=== PATIENT | male | born 1945 | race Caucasian/White ===

== ENCOUNTER 2022-06-30 09:57 | Outpatient (REF) | payer MEDICARE, SELFPAY ==
--- NOTE | ~2022-06-30 | XR_ITS ---
EXAMINATION: XR CHEST CLINICAL INFORMATION: Dyspnea. COMPARISON: None TECHNIQUE: 2 views of the chest were obtained. FINDINGS: There is mild elevation of the right hemidiaphragm. Coarse pleural calcifications are seen bilaterally. The heart and mediastinal structures are unremarkable. XR/XR chest 2V IMPRESSION: Coarse pleural calcifications bilaterally without overt acute underlying osseous abnormality suggestive of prior asbestos exposure. Correlate with patient history.
[2022-06-30 11:46] LABS: Influenza A PCR NEGATIVE (Negative); Influenza B PCR NEGATIVE (Negative); Resp Syncy Virus RNA Qual PCR NEGATIVE (Negative); SARS COV2 PCR INHOUSE NEGATIVE (Negative)
== END 2022-06-30 09:58 | disposition home or self-care (01) ==
LOC: HO.XRAY 09:57
PROVIDERS: PCP Internal Medicine; Visit Provider Internal Medicine Pulmonary Disease
DX: Z20.822 Contact with and (suspected) exposure to COVID-19 (principal); R06.00 Dyspnea, unspecified; J61 Pneumoconiosis due to asbestos and other mineral fibers; J84.9 Interstitial pulmonary disease, unspecified; J40 Bronchitis, not specified as acute or chronic
CPT/HCPCS: 0241U; 71046; 99202

== ENCOUNTER 2022-09-27 06:21 | Outpatient (REF) | payer MEDICARE, SELFPAY ==
[2022-09-27 11:54] LABS: Alanine Aminotransferase 11 U/L (0-40); Albumin Level 3.9 g/dL (3.5-5.0); Alkaline Phosphatase 78 U/L (39-117); Anion Gap 9 (12-20); Aspartate Amino Transferase 16 U/L (5-37); Bilirubin Total 1.6 mg/dL (0.0-1.0); Blood Urea Nitrogen 32 mg/dL (9-16); Calcium 9.2 mg/dL (8.4-10.2); Carbon Dioxide 30 mmol/L (22-29); Chloride 107 mmol/L (96-108); Estimated Glomerular Filt Rate 45; Glucose Random 120 mg/dL (60-115); Potassium 4.3 mmol/L (3.3-5.1); Sodium 142 mmol/L (135-145); Total Protein 5.8 g/dL (6.5-8.0)
== END 2022-09-27 06:22 | disposition home or self-care (01) ==
LOC: HO.HMGCLDS 06:21
PROVIDERS: PCP Internal Medicine; Visit Provider Internal Medicine
DX: R60.0 Localized edema (principal)
CPT/HCPCS: 36415; 80053

== ENCOUNTER 2023-11-08 19:33 | Observation (INO) | payer MEDICARE, SELFPAY ==
[2023-11-08] VITALS (8 sets, daily range): BP systolic 85–124; BP diastolic 50–83; PULSE 60–85; RESP 16–18; TEMP 36.4–36.8; O2SAT 97–98; BMI 27.6
--- NOTE | 2023-11-08 | ECG_ITS ---
Test Reason : SYNCOPE Blood Pressure : / mmHG Vent. Rate : 063 BPM Atrial Rate : 063 BPM P-R Int : 170 ms QRS Dur : 086 ms QT Int : 418 ms P-R-T Axes : 040 010 019 degrees QTc Int : 427 ms Normal sinus rhythm Normal ECG No previous ECGs available Referred By: Generic ED Physician Electronically Signed By:KODAK MARTINEZ MD
--- NOTE | ~2023-11-08 | CT_ITS ---
EXAMINATION: CT ANGIOGRAM HEAD CT ANGIOGRAM NECK CLINICAL INFORMATION: Reason for Exam Syncope COMPARISON: None. TECHNIQUE: Initial noncontrast boiler technician imaging of the head and neck was performed. Noncontrast head CT was also performed. Test bolus sequences followed by intravenous administration 70 mL of Omnipaque 350. Helical imaging was performed in the axial plane from the aortic arch to the skull vertex. Delayed postcontrast imaging of the head was also performed. The data was processed at the ophthalmic technologist workstation for generation of MIP sequences. Angled MIPs and volume rendered reformatted images were also generated at an offline 3D workstation. Stenoses are assessed in accordance with NASCET criteria unless otherwise indicated. DLP: 2472.98 mGy-cm This CT examination was performed using dose optimization techniques as appropriate, variously including the following: *Automated exposure control. *Adjustment of mA and/or kV according to patient size (this includes techniques or standardized protocols for targeted exams where dose is matched to indication/reason for exam; i.e. extremities or head). *Use of iterative reconstruction technique. FINDINGS: CT Head: There is no evidence of acute intracranial hemorrhage or edematous territorial infarction. A few foci of hypoattenuation in the periventricular and deep white matter are consistent with mild microangiopathy. Vee-white matter differentiation is preserved. The ventricles are normal in size and configuration. No evidence for obstructive hydrocephalus. No abnormal mass effect or midline shift. No extra-axial fluid collections. There is an arachnoid cyst in the anterior right middle cranial fossa measuring up to 3.7 cm with mild mass effect on the anterior right temporal lobe. No pathologic intra-axial enhancement or regional oligemia. No acute soft tissue or osseous abnormalities. Mild maxillary sinus mucosal thickening. CT Neck: The thyroid gland and remaining cervical soft tissues are within normal limits. Multilevel cervical spondylosis. CT Upper Chest: Bilateral calcified pleural plaques. Neck CTA: Aortic Arch: Normal contour and caliber. Classic 3 vessel branching pattern of the aortic arch. Great Vessel Origins: No significant stenosis of the branch origins. Right Common Carotid Artery: No focal stenosis or occlusion. Cervical Right Internal Carotid Artery: Mild calcific atherosclerotic disease of the carotid bulb and proximal internal carotid artery without flow-limiting stenosis. Left Common Carotid Artery: No focal stenosis or occlusion. Cervical Left Internal Carotid Artery: Mild calcific atherosclerotic disease of the carotid bulb and proximal internal carotid artery without flow-limiting stenosis. Cervical Right Vertebral Artery: High-grade stenosis of the vessel origin. No other focal stenosis or occlusion. Cervical Left Vertebral Artery: There is moderate extrinsic compression of the V2 segment related to facet and uncovertebral hypertrophy at C4-C5. No other focal stenosis or occlusion. Brain CTA: Intracranial Internal Carotid Arteries: Calcific atherosclerotic disease of the intracranial internal carotid arteries without occlusion or flow-limiting stenosis. Right Anterior Cerebral Artery: Normal A1 segment. Normal opacification of the distal DALLIN segments. Left Anterior Cerebral Artery: Normal A1 segment. Normal opacification of the distal DALLIN segments. Anterior Communicating Artery: Normal. Right Middle Cerebral Artery: Normal M1 segment of the MCA without focal stenosis or occlusion. Normal arborization of the distal segments. Left Middle Cerebral Artery: Normal M1 segment of the MCA without focal stenosis or occlusion. Normal arborization of the distal segments. Right Vertebral Artery: Normal V4 segment. Left Vertebral Artery: Normal V4 segment. Basilar Artery: Normal without focal stenosis or occlusion. Normal appearance of the proximal superior cerebellar arteries. Right Posterior Cerebral Artery: The P1 segment is diminutive. origin of the PANTOGRAPHER with robust opacification of the posterior communicating artery. Normal opacification of the distal PANTOGRAPHER segments. Left Posterior Cerebral Artery: The P1 segment is diminutive. origin of the PANTOGRAPHER with robust opacification of the posterior communicating artery. Normal opacification of the distal PANTOGRAPHER segments. Normal opacification of the superior sagittal, straight, transverse, and sigmoid sinuses. CT/CT angio head neck IMPRESSION: 1. No acute intracranial abnormality including hemorrhage, mass effect, hydrocephalus, or acute territorial edematous infarction. 2. Arachnoid cyst along the anterior aspect of the right middle cranial fossa with mild mass effect on the anterior right temporal lobe. 3. 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 No other high-grade arterial narrowing or occlusion in the neck. 4. No intracranial arterial high-grade stenosis or large vessel occlusion. 5. Bilateral calcified pleural plaques which can be seen in the setting of prior asbestos exposure.
--- NOTE | ~2023-11-08 | XR_ITS ---
EXAMINATION: XR CHEST CLINICAL INFORMATION: Syncope. COMPARISON: Chest radiographs dated 06/30/2022. TECHNIQUE: Frontal view of the chest was obtained. FINDINGS: The heart, great vessels, pulmonary vasculature and mediastinum are stable. There is marked elevation of the right hemidiaphragm. Coarse bilateral pleural calcifications are redemonstrated. No new infiltrate, effusion or pneumothorax is seen. There is no acute osseous abnormality. XR/XR chest 1V IMPRESSION: There are again coarse pleural calcifications suggesting prior asbestos exposure. No superimposed infiltrate or congestive heart failure are seen. There is no effusion. There is stable elevation of the right diaphragm.
[2023-11-08 20:27] LABS: MANUAL DIFF FLAG NO
[2023-11-08 20:28] LABS: Basophils Percent Auto 0.3 % (0-2); Eosinophils Absolute Auto 0.1 X10*3/uL (0.0-0.4); Eosinophils Percent Auto 0.7 % (0-4); Hematocrit 33.6 % (42.0-52.0); Hemoglobin 12.2 g/dl (14.0-18.0); Imm Gran Abs Auto 0.02 X10*3/uL (0.00-0.03); Imm Gran Pct Auto 0.2 % (0.0-0.4); Lymphocytes Absolute Auto 1.6 X10*3/uL (1.2-4.9); Lymphocytes Percent Auto 14.3 % (20-40); Mean Corpuscular HGB Conc 36.3 g/dl (31.0-36.0); Mean Corpuscular Hemoglobin 31.9 pg (27.0-33.0); Mean Platelet Volume 8.9 fL (9.4-12.4); Monocytes Absolute Auto 0.9 X10*3/uL (0.1-1.2); Monocytes Percent Auto 7.9 % (2-11); Neutrophils Absolute Auto 8.5 x10*3/uL (2.0-8.3); Neutrophils Percent Auto 76.6 % (45-73); Platelet Count 128 X10*3/uL (160-400); Red Blood Count 3.82 X10*6/uL (4.60-5.80); Red Cell Distribution Width 12.4 % (11.0-16.0); White Blood Count 11.1 X10*3/uL (4.8-10.8)
[2023-11-08 20:42] LABS: Anion Gap 14 (12-20); Blood Urea Nitrogen 27 mg/dL (9-16); Calcium 9.2 mg/dL (8.4-10.2); Carbon Dioxide 23 mmol/L (22-29); Chloride 107 mmol/L (96-108); Creatinine Clr Calc Pharmacy 46.2; Estimated Glomerular Filt Rate 49; Glucose Random 125 mg/dL (60-115); Potassium 4.6 mmol/L (3.3-5.1); Sodium 139 mmol/L (135-145)
[2023-11-08 20:52] LABS: Troponin-I High Sensitivity < 2.7 ng/L (<3.5-35.0)
--- NOTE | 2023-11-08 21:11 | ED_ITS ---
HPI - Syncope General Chief Complaint: Syncope Stated Complaint: syncope, low BP Time Seen by Provider: 11/08/23 21:08 Source: patient and family Mode of arrival: ambulatory Limitations: no limitations History of Present Illness ED Provider: brody TORREZ narrative: Patient with history of asbestosis, hypertension had stress test on 06/08 which was negative comes here for 2 episodes of syncope while having dinner. Apparently patient long day today came home was sitting for dinner with his at restaurant was eating a hot passed a day felt dizzy and passed out no seizure activities no confusion episode lasted only for few seconds after few minutes patient another episode patient's blood pressure systolic was in 70s received 300 cc of normal saline by the EMS on arrival patient's blood pressure was 109/58 no chest pain no palpitation no history of similar episodes in the past patient had last fluid intake today Related Data Home Medications ?Medication ?Instructions ?Recorded ?Confirmed fluticasone propionate 50 g intranasal 06/30/22 mcg/actuation nasal spray,suspension hydralazine 50 mg tablet 50 mg PO 06/30/22 losartan 100 mg tablet 100 mg PO 06/30/22 meloxicam 15 mg tablet 15 mg PO 06/30/22 metoprolol succinate 100 mg ea PO 06/30/22 tablet,extended release 24 hr omeprazole 20 mg capsule,delayed 20 mg PO 06/30/22 release spironolactone 25 mg tablet 25 mg PO 06/30/22 Previous Rx's ?Medication ?Instructions ?Recorded azithromycin 250 mg tablet See Rx Instructions PO .COMPLEX #6 06/30/22 tabs codeine 10 mg-guaifenesin 100 mg/5 10 ml PO Q4-6H PRN cough 21 days 06/30/22 mL oral liquid #473 mL prednisone 10 mg tablet See Rx Instructions PO DAILY 16 07/07/22 days #40 tabs Allergies Allergy/AdvReac Type Severity Reaction Status Date / Time No Known Allergies Allergy Verified 11/08/23 19:48 Review of Systems 2 Review of Systems: Yes all other systems are reviewed and are negative PMFSH Past Medical History Medical History (Updated 11/08/23 @ 23:59 by Hayden George MD) Hypertension Social History Social History Smoked in Last 30 Days: No Use of substances other than those prescribed or required for medical reasons: No Advance Directives: No Advance Directives Information Provided: No Physical Exam 2 Vital Signs: Vital Signs: Last Vital Signs Temp 97.6 F 11/08/23 22:20 Pulse 84 11/08/23 23:54 Resp 16 11/08/23 22:20 BP 122/77 11/08/23 23:54 Pulse Ox 97 11/08/23 22:20 O2 Del Method Room Air 11/08/23 22:20 BMI result Body Mass Index 27.6 Appearance: Alert. Oriented X3. No acute distress. Eyes: No pallor or icterus ENT: Pharynx normal. Oral Mucosa moist Neck: Normal inspection. Neck supple. No bruits CVS: Normal heart rate and rhythm. Pulses normal. No murmur rub or gallop Respiratory: No respiratory distress. Equal air entry bilateral, no wheezing/rales/rhonchi Abdomen: Soft and nontender. Bowel sounds are present, no mass palpable, no CVA tenderness Skin: Skin warm and dry. Normal skin color. Normal skin turgor. Extremities: No lower extremity edema. No calf tenderness Neuro: Oriented X 3. No motor deficit. No sensory deficit.No cerebellar signs , cranial nerves II-XII intact Medications Administered Discontinued Medications Generic Name Dose Route Start Last Admin Trade Name Freq PRN Reason Stop Dose Admin Iohexol 70 ml 11/08/23 22:23 11/08/23 22:23 Iohexol 350 Mg/Ml 100 Ml Infus..Btl IV 11/08/23 22:24 70 ml ONCE ONE Administration Medical Decision Making Medical Decision Making [facility] Narrative: Patient with syncope episode etiology not very clear patient had a long day did not have much fluid intake today when EMS read blood pressure was in 70s which improved after normal saline patient has no seizure activities has a questionable history of fluttering in the past but no Holter monitoring done will admit the patient for cardiac monitoring possible sick sinus syndrome/cardiac arrhythmia with incidental finding of right high-grade vertebral artery stenosis Patient was given to hospitalist for admission at 12 midnight Differential Diagnosis Differential Diagnoses: The differential diagnosis associated with the presentation includes Cardiac arrhythmias/sick sinus syndrome/bilateral carotid artery disease/subclavian steal syndrome/vasovagal/hypovolemia/ACS Admission/Observation Consideration of admission/observation: Escalation of care including admission/observation considered Consult Healthcare Provider Management of the patient was discussed with: Hospitalist and Power Project Manager Case discussed with Dr. William for high-grade vertebral stenosis on the right vertebral artery does not think that is the cause for syncope Lab Data MDM Lab Attestation statement: I reviewed the patient's lab results. 11/08/23 20:23 11/08/23 20:23 Labs: Lab Results 11/08/23 Range/Units 20:23 WBC 11.1 H (4.8-10.8) X10*3/uL RBC 3.82 L (4.60-5.80) X10*6/uL Hgb 12.2 L (14.0-18.0) g/dl Hct 33.6 L (42.0-52.0) % MCV 88.0 (80.0-98.0) fL MCH 31.9 (27.0-33.0) pg MCHC 36.3 H (31.0-36.0) g/dl RDW 12.4 (11.0-16.0) % Plt Count 128 L (160-400) X10*3/uL MPV 8.9 L (9.4-12.4) fL Immature Gran % (Auto) 0.2 (0.0-0.4) % Neut % (Auto) 76.6 H (45-73) % Lymph % (Auto) 14.3 L (20-40) % Navarro % (Auto) 7.9 (2-11) % Eos % (Auto) 0.7 (0-4) % Baso % (Auto) 0.3 (0-2) % Lymph # (Auto) 1.6 (1.2-4.9) X10*3/uL [place]arro # (Auto) 0.9 (0.1-1.2) X10*3/uL Eos # (Auto) 0.1 (0.0-0.4) X10*3/uL Baso # (Auto) 0.0 (0.0-0.2) X10*3/uL Abs Immat Gran (auto) 0.02 (0.00-0.03) X10*3/uL Absolute Neuts (auto) 8.5 H (2.0-8.3) x10*3/uL Absolute Nucleated RBC 0.000 (0.0-0.012) X10*3/uL Nucleated RBC % (auto) 0.0 (0.0-0.2) /100WBC Sodium 139 (135-145) mmol/L Potassium 4.6 (3.3-5.1) mmol/L Chloride 107 (96-108) mmol/L Carbon Dioxide 23 (22-29) mmol/L Anion Gap 14 (12-20) BUN 27 H (9-16) mg/dL Creatinine 1.40 (0.5-1.4) mg/dL Estim Creat Clear Calc 46.2 Estimated GFR 49 Random Glucose 125 H (60-115) mg/dL Calcium 9.2 (8.4-10.2) mg/dL Troponin I High Sens < 2.7 (<3.5-35.0) ng/L Independent Interpretation I performed an independent interpretation of an: EKG and CT Scan Interpretation: Normal sinus rhythm heart rate 63 beats per minute normal interval normal axis no acute ST T wave changes no acute ischemia Radiology Impression Discussion of test interpretation with radiology: I have reviewed the radiologist's reading. Radiologist Impression: [place] [id number] CT Scan Report Signed Patient: Michael Urena MR#: [id number] : 1945 Acct:[id number] Age/Sex: 77 / M ADM Date: 11/08/23 Loc: .ED Attending Dr: Ordering Physician: Hayden George MD Date of Service: 11/08/23 Procedure(s): CT angio head neck Accession Number(s): [id number] cc: Jesse Infante MD; Hayden George MD~ EXAMINATION: CT ANGIOGRAM HEAD CT ANGIOGRAM NECK CLINICAL INFORMATION: Reason for Exam Syncope COMPARISON: None. TECHNIQUE: Initial noncontrast morning show newscast producer imaging of the head and neck was performed. Noncontrast head CT was also performed. Test bolus sequences followed by intravenous administration 70 mL of Omnipaque 350. Helical imaging was performed in the axial plane from the aortic arch to the skull vertex. Delayed postcontrast imaging of the head was also performed. The data was processed at the senior medical technologist workstation for generation of MIP sequences. Angled MIPs and volume rendered reformatted images were also generated at an offline 3D workstation. Stenoses are assessed in accordance with NASCET criteria unless otherwise indicated. DLP: 2472.98 mGy-cm This CT examination was performed using dose optimization techniques as appropriate, variously including the following: *Automated exposure control. *Adjustment of mA and/or kV according to patient size (this includes techniques or standardized protocols for targeted exams where dose is matched to indication/reason for exam; i.e. extremities or head). *Use of iterative reconstruction technique. FINDINGS: CT Head: There is no evidence of acute intracranial hemorrhage or edematous territorial infarction. A few foci of hypoattenuation in the periventricular and deep white matter are consistent with mild microangiopathy. Vee-white matter differentiation is preserved. The ventricles are normal in size and configuration. No evidence for obstructive hydrocephalus. No abnormal mass effect or midline shift. No extra-axial fluid collections. There is an arachnoid cyst in the anterior right middle cranial fossa measuring up to 3.7 cm with mild mass effect on the anterior right temporal lobe. No pathologic intra-axial enhancement or regional oligemia. No acute soft tissue or osseous abnormalities. Mild maxillary sinus mucosal thickening. CT Neck: The thyroid gland and remaining cervical soft tissues are within normal limits. Multilevel cervical spondylosis. CT Upper Chest: Bilateral calcified pleural plaques. Neck CTA: Aortic Arch: Normal contour and caliber. Classic 3 vessel branching pattern of the aortic arch. Great Vessel Origins: No significant stenosis of the branch origins. Right Common Carotid Artery: No focal stenosis or occlusion. Cervical Right Internal Carotid Artery: Mild calcific atherosclerotic disease of the carotid bulb and proximal internal carotid artery without flow-limiting stenosis. Left Common Carotid Artery: No focal stenosis or occlusion. Cervical Left Internal Carotid Artery: Mild calcific atherosclerotic disease of the carotid bulb and proximal internal carotid artery without flow-limiting stenosis. Cervical Right Vertebral Artery: High-grade stenosis of the vessel origin. No other focal stenosis or occlusion. Cervical Left Vertebral Artery: There is moderate extrinsic compression of the V2 segment related to facet and uncovertebral hypertrophy at C4-C5. No other focal stenosis or occlusion. Brain CTA: Intracranial Internal Carotid Arteries: Calcific atherosclerotic disease of the intracranial internal carotid arteries without occlusion or flow-limiting stenosis. Right Anterior Cerebral Artery: Normal A1 segment. Normal opacification of the distal DALLIN segments. Left Anterior Cerebral Artery: Normal A1 segment. Normal opacification of the distal DALLIN segments. Anterior Communicating Artery: Normal. Right Middle Cerebral Artery: Normal M1 segment of the MCA without focal stenosis or occlusion. Normal arborization of the distal segments. Left Middle Cerebral Artery: Normal M1 segment of the MCA without focal stenosis or occlusion. Normal arborization of the distal segments. Right Vertebral Artery: Normal V4 segment. Left Vertebral Artery: Normal V4 segment. Basilar Artery: Normal without focal stenosis or occlusion. Normal appearance of the proximal superior cerebellar arteries. Right Posterior Cerebral Artery: The P1 segment is diminutive. origin of the SENIOR TALENT MANAGEMENT CONSULTANT with robust opacification of the posterior communicating artery. Normal opacification of the distal SENIOR TALENT MANAGEMENT CONSULTANT segments. Left Posterior Cerebral Artery: The P1 segment is diminutive. origin of the SENIOR TALENT MANAGEMENT CONSULTANT with robust opacification of the posterior communicating artery. Normal opacification of the distal SENIOR TALENT MANAGEMENT CONSULTANT segments. Normal opacification of the superior sagittal, straight, transverse, and sigmoid sinuses. CT/CT angio head neck IMPRESSION: 1. No acute intracranial abnormality including hemorrhage, mass effect, hydrocephalus, or acute territorial edematous infarction. 2. Arachnoid cyst along the anterior aspect of the right middle cranial fossa with mild mass effect on the anterior right temporal lobe. 3. 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 No other high-grade arterial narrowing or occlusion in the neck. 4. No intracranial arterial high-grade stenosis or large vessel occlusion. 5. Bilateral calcified pleural plaques which can be seen in the setting of prior asbestos exposure. Discharge Plan Discharge Clinical Impression: Syncope and collapse Patient Disposition: Admitted As Inpatient Print Language: [place]ican
[2023-11-08] MEDS: iohexoL 350 MG/ML 100 ML INFUS..BTL 70 ML IV (22:23)
[2023-11-09 02:21] VITALS: BP 126/77; PULSE 96; RESP 16; TEMP 36.5; O2SAT 96
--- NOTE | 2023-11-09 02:24 | PM.IMHP ---
History of Present Illness Date of Service: 11/09/23 Attending physician on admission: Jordana Huffman Chief Complaint: I fainted Michael Urena is a very pleasant 77 years old man with past medical history significant for essential hypertension on metoprolol, losartan and amlodipine was brought to the emergency department via EMS after he had an event of loss of consciousness while eating in restaurant last night around 6:30 PM. He was eating pasta and pointed out that it was very hot. Before losing consciousness he felt very dizzy and sweaty. He denied confusion upon regaining consciousness. No seizure activity, focal weakness, speech difficulty, acute visual changes or headache reported. This event was witnessed by his . He said that his blood pressure was found to be 80/50 by EMS. He was drinking alcohol but only couple of sips. He denied any event of nausea, vomiting, diarrhea. Patient denied diuretics use but dispense med hx patient takes spironolactone. He denied any taking any new medication or changes please call with medications. 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 He underwent a stress test for this. Patient did report toxic habits. In the ED, was found to have normal vital signs. Blood workup showed mild leukocytosis of 11.1. Hemoglobin is 12.2 and platelets 128. There are no significant electrolyte imbalances. BUN is 27 and creatinine 1.40. Troponin < 2.7. ECG showed normal sinus rhythm with no acute ischemic changes. ED tx: None. Review of Systems Review of Systems: All 12 systems were reviewed and normal except as noted in HPI. [facility] Medical History (Updated 11/09/23 @ 03:25 by Jordana Huffman MD) Hypertension Social History Household Members: Spouse Housing: House Do you presently have visiting nurse or other home services: No Patient Tobacco Use Status: Former Tobacco user Tobacco use type: Cigarette Smoked in Last 30 Days: No Use of substances other than those prescribed or required for medical reasons: No Currently Displaying Signs/Symptoms of Drug Intoxication Withdrawal: No Have you been hit, kicked, punched, or otherwise hurt by someone within the past year? If so, by whom?: No Do you feel safe in your current relationship?: Yes Is there a partner from a previous relationship who is making you feel unsafe now?: No Are you made to feel afraid or neglected: No Advance Directives: No Advance Directives Information Provided: No Recently lost weight without trying: No Eating poorly because of decreased appetite: No Nutrition Risks: No Nutritional Risk Poor oral hygiene: No Meds Allergies Allergy/AdvReac Type Severity Reaction Status Date / Time No Known Allergies Allergy Verified 11/08/23 19:48 Active Medications: Current Medications Acetaminophen (Acetaminophen 325 Mg Tablet) 650 mg PO Q6H PRN PRN Reason: Pain, Mild (Pain Scale 1-3), fever or headache Melatonin (Melatonin 3 Mg Tablet) 6 mg PO BEDTIME PRN PRN Reason: Insomnia Sodium Chloride (0.9 % Sodium Chloride Flush 3 Ml Syringe) [facility] Home Medications ?Medication ?Instructions ?Recorded ?Confirmed ?Last Taken ?Type fluticasone propionate 50 g intranasal 06/30/22 Unknown History mcg/actuation nasal spray,suspension hydralazine 50 mg tablet 50 mg PO 06/30/22 Unknown History losartan 100 mg tablet 100 mg PO 06/30/22 Unknown History meloxicam 15 mg tablet 15 mg PO 06/30/22 Unknown History metoprolol succinate 100 mg ea PO 06/30/22 Unknown History tablet,extended release 24 hr omeprazole 20 mg capsule,delayed 20 mg PO 06/30/22 Unknown History release spironolactone 25 mg tablet 25 mg PO 06/30/22 Unknown History Physical Exam Vital Signs and Narrative: Vital Signs: Last Vital Signs Temp 97.7 F 11/09/23 02:21 Pulse 96 11/09/23 02:21 Resp 16 11/09/23 02:21 BP 126/77 11/09/23 02:21 Pulse Ox 96 11/09/23 02:21 O2 Del Method Room Air 11/09/23 02:21 BMI result Body Mass Index 27.6 Constitutional - Awake and Alert, No apparent distress. Pleasant. Cooperative. HEENT - PERRL. Normal sclera. Heart - RRR, no murmur. Lungs - Normal lung expansion, Normal respiratory effort, No respiratory distress, CTA bilaterally Abdomen - Nonterder. Extremities - no calf tenderness bilaterally, no swelling Musculoskeletal - Normal inspection, normal ROM Skin - Warm/Dry Neurological - Alert & oriented x3. No facial droop. Normal speech. Psychological - Appropriate affect Results Labs 11/08/23 20:23 11/08/23 20:23 Labs: Laboratory Results - last 24 hr 11/08/23 20:23 MCV 88.0 MCH 31.9 MCHC 36.3 H RDW 12.4 Plt Count 128 L MPV 8.9 L Immature Gran % (Auto) 0.2 Neut % (Auto) 76.6 H Lymph % (Auto) 14.3 L Cloud % (Auto) 7.9 Eos % (Auto) 0.7 Baso % (Auto) 0.3 Lymph # (Auto) 1.6 Cloud # (Auto) 0.9 Eos # (Auto) 0.1 Baso # (Auto) 0.0 Abs Immat Gran (auto) 0.02 Absolute Neuts (auto) 8.5 H Absolute Nucleated RBC 0.000 Nucleated RBC % (auto) 0.0 Anion Gap 14 Estim Creat Clear Calc 46.2 Estimated GFR 49 Random Glucose 125 H Calcium 9.2 Troponin I High Sens < 2.7 Imaging Radiologist's Impressions: Impressions Head/Neck CTA 11/08/23 22:15 IMPRESSION: 1. No acute intracranial abnormality including hemorrhage, mass effect, hydrocephalus, or acute territorial edematous infarction. 2. Arachnoid cyst along the anterior aspect of the right middle cranial fossa with mild mass effect on the anterior right temporal lobe. 3. 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 No other high-grade arterial narrowing or occlusion in the neck. 4. No intracranial arterial high-grade stenosis or large vessel occlusion. 5. Bilateral calcified pleural plaques which can be seen in the setting of prior asbestos exposure. Assessment and Plan (1) Syncope: Qualifiers: Syncope type: unspecified Qualified Code(s): R55 - Syncope and collapse Status: Acute (2) Stenosis of right vertebral artery: Status: Acute Plan Michael Urena is 77 y/o woman presents with: Syncope. Orthostatic VS in ED are negative. Per patient, his BP was found to be low (around 80/50) by EMS. Possible triggered by swallowing/he was eating a meal. Hold anti-HTN meds for now. ECG is normal. Associated to high-grade stenosis of the right vertebral artery? Observation. Telemetry. Check CXR. Recheck troponin. Obtain TTE. Cardiology and neurology consult. Essential HTN. Will hold anti-HTN meds for now. Continue to monitor BP closely. CKD stage 3A. Continue to monitor renal function. Quality Stroke Does the patient have a stroke diagnosis?: No VTE Prior VTE?: No VTE Risk Level:: Medical - moderate - high VTE Device Contraindication: N/A - Device Ordered VTE Drug Contraindication: Treatment Not Indicated
[2023-11-09 03:28] VITALS: BP 136/82; PULSE 78; RESP 18; TEMP 36.9; O2SAT 94
[2023-11-09] MEDS: 0.9 % Sodium Chloride 500 ML IV (04:01)
[2023-11-09 06:53] LABS: MANUAL DIFF FLAG NO
[2023-11-09 06:59] LABS: Basophils Percent Auto 0.4 % (0-2); Eosinophils Absolute Auto 0.1 X10*3/uL (0.0-0.4); Eosinophils Percent Auto 1.2 % (0-4); Hematocrit 36.3 % (42.0-52.0); Hemoglobin 12.5 g/dl (14.0-18.0); Imm Gran Abs Auto 0.05 X10*3/uL (0.00-0.03); Imm Gran Pct Auto 0.5 % (0.0-0.4); Lymphocytes Absolute Auto 1.6 X10*3/uL (1.2-4.9); Mean Corpuscular HGB Conc 34.4 g/dl (31.0-36.0); Mean Corpuscular Volume 90.1 fL (80.0-98.0); Mean Platelet Volume 9.4 fL (9.4-12.4); Monocytes Absolute Auto 0.9 X10*3/uL (0.1-1.2); Monocytes Percent Auto 8.4 % (2-11); Neutrophils Absolute Auto 7.6 x10*3/uL (2.0-8.3); Neutrophils Percent Auto 73.5 % (45-73); Platelet Count 119 X10*3/uL (160-400); Red Blood Count 4.03 X10*6/uL (4.60-5.80); Red Cell Distribution Width 12.3 % (11.0-16.0); White Blood Count 10.3 X10*3/uL (4.8-10.8)
--- NOTE | 2023-11-09 07:00 | CA_ITS ---
Transthoracic Echocardiogram Patient (Last, First, Middle): Michael Urena A Gender: Male Date of : 1945 Age: 77 Procedure Date: 11/09/2023 Procedure Type: Transthoracic Echocardiogram Location: [facility] [place] Height: 172.72 cm Weight: 82.1 kg BSA: 1.96 m2 Heart Rate: 67 bpm BP: 136 / 82 mmHg Technical Training Instructor: SB Referring MD: Jordana Huffman MD Floral Clerk: Mauro Logan MD Symptoms: Syncope Study Quality: Adequate w contrast ECG Rhythm: Sinus Conclusions: - 1. Hyperdynamic LV ejection fraction greater than 70% with mild LVH with impaired relaxation filling pattern 2. Cardiac valvular Dopplers within normal limits 3. Mildly dilated ascending aorta at 4 cm 4. No gross pericardial effusion Findings Procedure Information Contrast agent, definity, is being given per protocol without apparent complications. Left Ventricle Normal left ventricular cavity size. There is mildly increased left ventricular wall thickness. The left ventricular systolic function is hyperdynamic. The visually estimated ejection fraction is >70%. Spectral Doppler is indicative of an impaired relaxation filling pattern. E/E prime ratio is between 8 and 15 consistent with indeterminate filling pressures. Right Ventricle Normal right ventricular cavity size and systolic function. Atria The left atrium is normal in size. There is no evidence of interatrial shunt. The right atrium is normal in size. Aortic Valve There is mild calcification of the aortic valve. There is mild thickening of the aortic valve. There is no aortic valve stenosis. There is no aortic valve regurgitation. Mitral Valve Normal mitral valve structure and function. There is trace mitral valve regurgitation. There is no mitral valve stenosis. Pulmonic Valve The pulmonic valve is likely normal. Tricuspid Valve Likely normal tricuspid valve structure and function. There is trace tricuspid valve regurgitation. The right ventricular systolic pressure is normal. The right ventricular systolic pressure is 32 mmHg. Normal right atrial pressure. There is no evidence of pulmonary hypertension. Great Vessels The pulmonary artery was not well visualized. There is mild dilatation of the ascending aorta measuring 4.00 cm. Small plaque is seen in the sino tubular ridge. Venous The inferior vena cava is normal in size and collapses greater than 50% with inspiration. Pericardium/Pleural There is no evidence of pericardial effusion. Prior Study Comparison No prior study available for comparison. Measurements 2D Linear Measurements IVSd: 1.33 0.6-0.9/0.6-1.0 cm LVIDd: 3.92 3.9-5.3/4.2-5.9 cm LVIDd Index: 2.00 2.4-3.2/2.2-3.1 cm/m2 LVIDs: 2.78 2.0-3.6 cm LVPWd: 0.77 0.7-1.1 cm LA Diam: 3.80 2.7-3.8/3.0-4.0 cm LAIDs Index: 1.94 1.5-2.3 cm/m2 LV Mass: 164.02 67-162/88-224 g LV Mass Index: 83.68 43-95/49-115 g/m2 LVOT Diam: 2.30 3.0+(-)1.3 cm 2D Systolic Function EF 4C: 66.70 >55% EF 2C: 78.60 >55% EF BiP: 74.10 >55% Mitral Valve MV Pk E: 0.52 MV PK A: 0.72 MV Decel Time: 290.00 E/A: 0.70 E'Lateral: 6.53 E'Medial: 5.77 E/E' Med: 9.10 E/E' Lat: 8.00 PHT: 85.00 MVA PHT: 2.59 Decel Navajo: 1.80 Aortic Valve AoV Pk Edgar: 1.25 AoV Pk Grad: 6.00 MARTHA: 3.78 LVOT LVOT Pk Edgar: 1.14 LVOT Mn Edgar: 0.83 LVOT VTI: 0.24 LVOT Pk Grad: 5.00 LVOT Mn Grad: 3.00 LVOT Diam: 2.30 LVOT Area: 4.15 Diastolic Function MV Pk E: 0.52 MV Pk A: 0.72 E/A: 0.70 E'Medial: 5.77 E/E' Med: 9.10 E' Laterial: 6.53 E/E' Lat: 8.00 Right Ventricle TAPSE (mm): 19.90 TVS' Edgar: 12.10 Tricuspid Valve TR Pk Edgar: 2.68 TR Pk Grad: 29.00 RA Press: 3.00 RVSP: 32.00 Great Vessels Aorta Sinus of Valsalva: 3.90 2.0-3.5 cm Ao Asc: 4.00 2.1-3.4 cm Ao Arch: 2.90 Pulmonary Veins Pulm Vein S/D 2.00 Pulmonary Valve PV Pk Edgar: 0.96 Peak PV Grad: 4.00 Updated in Other Vendor System with Status of Final Mauro Logan MD electronically signed on 11/09/2023 11:21:32 AM with status of Final
[2023-11-09 07:16] LABS: Alanine Aminotransferase 15 U/L (0-40); Albumin Level 3.8 g/dL (3.5-5.0); Alkaline Phosphatase 95 U/L (39-117); Anion Gap 12 (12-20); Aspartate Amino Transferase 19 U/L (5-37); Bilirubin Total 1.3 mg/dL (0.0-1.0); Blood Urea Nitrogen 25 mg/dL (9-16); Calcium 9.3 mg/dL (8.4-10.2); Carbon Dioxide 29 mmol/L (22-29); Chloride 104 mmol/L (96-108); Creatinine Clr Calc Pharmacy 47.9; Estimated Glomerular Filt Rate 51; Glucose Random 110 mg/dL (60-115); Potassium 4.4 mmol/L (3.3-5.1); Sodium 141 mmol/L (135-145); Total Protein 6.1 g/dL (6.5-8.0)
[2023-11-09 07:29] LABS: Troponin-I High Sensitivity < 2.7 ng/L (<3.5-35.0)
--- NOTE | 2023-11-09 07:48 | PC.NURSE ---
pt admitted to unit from ED due to episode of syncope and hypotension. pt denies any recent falls and ambulates independently without devices. declined skin check at this time, preferred to keep undergarments and pants on.
[2023-11-09 07:54] VITALS: BP 138/78; PULSE 70; RESP 18; TEMP 36.2; O2SAT 97
[2023-11-09] MEDS: 0.9 % Sodium Chloride Flush 3 ML SYRINGE IVFLUSH (08:13)
--- NOTE | 2023-11-09 09:01 | PHA.MEDREC ---
Pharmacy Consult ? Medication Reconciliation Pharmacy has completed the medication reconciliation. Spoke to patient at bedside, he was able to confirm his home meds with some prompting. Confirmed that he takes 150mg of Losartan daily and 100mg of Metoprolol daily. Also stated that he takes aspirin 81mg daily, a multivitamin, two OCT magnesium supplements, and a calcium supplement.
--- NOTE | 2023-11-09 09:13 | MHC.CM.PN ---
RAGHAV 11/08. Pt self-care, lives at home with his . Pts will transport him home. Pt has a HCP, copy requested. PCP: Dr. Jesse Infante
--- NOTE | 2023-11-09 10:08 | P.CNNE_ITS ---
History of Present Illness Data of Consult Service Date: 11/09/23 Primary Care Provider: Jesse Infante MD [facility] Reason for consult: Syncopal episode This is a 77 years old man with past medical history of essential hypertension on metoprolol, losartan and amlodipine presented via EMS after he had an episode of loss of consciousness while eating at a restaurant last night around 6:30 PM. He was eating pasta that was very hot. He felt very dizzy and sweaty then lost consciousness. He denied confusion upon regaining consciousness. No seizure activity, focal weakness, speech difficulty, acute visual changes or headache reported. This event was witnessed by his . He said that his blood pressure was found to be 80/50 by EMS. He was drinking alcohol but only couple of sips. He denied any event of nausea, vomiting, diarrhea.No chest pain or palpitations. He is being worked up for chest pain as an out patient before this. Ct brain with incidental finding of anterior temporal pole arachnoid cyst in middle fossa. CTA without any significant stenosis in neck or intracranially. ? right vertebral artery origin stenosis . [facility] Past Medical History Medical History Hypertension Social History Social History Household Members: Spouse Housing: House Do you presently have visiting nurse or other home services: No Patient Tobacco Use Status: Former Tobacco user Tobacco use type: Cigarette Smoked in Last 30 Days: No Use of substances other than those prescribed or required for medical reasons: No Currently Displaying Signs/Symptoms of Drug Intoxication Withdrawal: No Have you been hit, kicked, punched, or otherwise hurt by someone within the past year? If so, by whom?: No Do you feel safe in your current relationship?: Yes Is there a partner from a previous relationship who is making you feel unsafe now?: No Are you made to feel afraid or neglected: No Advance Directives: No Advance Directives Information Provided: No Recently lost weight without trying: No Eating poorly because of decreased appetite: No Nutrition Risks: No Nutritional Risk Poor oral hygiene: No service: No Meds Allergies Allergy/AdvReac Type Severity Reaction Status Date / Time No Known Allergies Allergy Verified 11/08/23 19:48 Active Medications: Current Medications Acetaminophen (Acetaminophen 325 Mg Tablet) 650 mg PO Q6H PRN PRN Reason: Pain, Mild (Pain Scale 1-3), fever or headache Melatonin (Melatonin 3 Mg Tablet) 6 mg PO BEDTIME PRN PRN Reason: Insomnia Sodium Chloride (0.9 % Sodium Chloride Flush 3 Ml Syringe) 3 ml IVFLUSH QSHIFT [facility] Last Admin: 11/09/23 08:13 Dose: 3 ml Home Medications ?Medication ?Instructions ?Recorded ?Confirmed ?Last Taken ?Type hydralazine 50 mg tablet 50 mg PO BID 06/30/22 11/09/23 Unknown History losartan 100 mg tablet 150 mg PO DAILY 06/30/22 11/09/23 Unknown History metoprolol succinate 100 mg 100 mg PO DAILY 06/30/22 11/09/23 Unknown History tablet,extended release 24 hr omeprazole 20 mg capsule,delayed 20 mg PO DAILY@0630 06/30/22 11/09/23 Unknown History release spironolactone 25 mg tablet 25 mg PO DAILY 06/30/22 11/09/23 Unknown History amlodipine 5 mg tablet 5 mg PO DAILY 11/09/23 11/09/23 Unknown History aspirin 81 mg chewable tablet 81 mg PO DAILY 11/09/23 11/09/23 Unknown History atorvastatin 80 mg tablet 80 mg PO BEDTIME 11/09/23 11/09/23 Unknown History calcium carbonate 500 mg PO DAILY 11/09/23 11/09/23 Unknown History isosorbide mononitrate 30 mg 30 mg PO DAILY 11/09/23 11/09/23 Unknown History tablet,extended release 24 hr magnesium oxide 800 mg PO DAILY 11/09/23 11/09/23 Unknown History multivitamin 1 tab PO DAILY 11/09/23 11/09/23 Unknown History nitroglycerin 0.4 mg sublingual 0.4 mg sublingual Q5M PRN Angina 11/09/23 11/09/23 Unknown History tablet tizanidine 4 mg tablet 4 mg PO BEDTIME PRN Muscle Spasm 11/09/23 11/09/23 Unknown History Physical Exam 2 Vital Signs: Vital Signs: Last Vital Signs Temp 97.1 F 11/09/23 07:54 Pulse 70 11/09/23 07:54 Resp 18 11/09/23 07:54 BP 138/78 11/09/23 07:54 Pulse Ox 97 11/09/23 07:54 O2 Del Method Room Air 11/09/23 07:54 BMI result Body Mass Index 27.6 Neuro: Other: Normal neuro exam Results Labs 11/09/23 06:28 11/09/23 06:28 Labs: Short CBC 11/08/23 11/09/23 Range/Units 20:23 06:28 WBC 11.1 H 10.3 (4.8-10.8) X10*3/uL Hgb 12.2 L 12.5 L (14.0-18.0) g/dl Hct 33.6 L 36.3 L (42.0-52.0) % Plt Count 128 L 119 L (160-400) X10*3/uL BMP 11/08/23 11/09/23 20:23 06:28 Sodium 139 141 Potassium 4.6 4.4 Chloride 107 104 Carbon Dioxide 23 29 BUN 27 H 25 H Creatinine 1.40 1.35 Calcium 9.2 9.3 Liver Function 11/09/23 Range/Units 06:28 Total Bilirubin 1.3 H (0.0-1.0) mg/dL AST 19 (5-37) U/L ALT 15 (0-40) U/L Alkaline Phosphatase 95 (39-117) U/L Albumin 3.8 (3.5-5.0) g/dL Assessment and Plan (1) Syncope: Qualifiers: Syncope type: unspecified Qualified Code(s): R55 - Syncope and collapse Status: Acute Unclear etiology. Recom.: Cardiac monitoring. OP EEG Procedures Date of Service Date of Service: 11/09/23
--- NOTE | 2023-11-09 10:38 | PM.CNCAR ---
History of Present Illness History of Present Illness Date of Service: 11/09/23 Requesting physician: Osmar Kaplan Consult reason: other (Syncope) Chief complaint: Syncope Narrative: I was consulted to see Michael in cardiology consultation today for episode of syncope. He has a pleasant 77-year-old male with prior history of longstanding hypertension since age of 40, hyperlipidemia asbestosis. He has had issues with managing his blood pressure for a long time on multiple medications. Over the last 6 months he has been having symptoms of exertional chest discomfort for which she underwent a stress test at [facility] for same. This showed moderate exercise capacity with induced angina on the treadmill with negative EKG and negative myocardial perfusion imaging. However due to his continued symptoms concerning for angina he underwent a coronary CTA which showed three-vessel coronary artery disease with subsequent FFR positive for ischemia in the distal LAD territory consistent with diffuse disease in the LAD territory as well as focal reduction in FFR in the distal RCA consistent with significant stenosis in the distal RCA territory. The FFR was negative in the circumflex territory consistent with nonobstructive disease despite diffuse and heavy atherosclerotic burden. Patient has been doing well being adjusted with medications for his blood pressure as an outpatient with Dr. Doyle, and due to his elevated blood pressure reading amlodipine was added in July and his metoprolol was reduced from 200 mg 200 mg due to bradycardia. Patient continues to take spironolactone 25 mg, hydralazine twice a day and losartan 150 mg in the morning. 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 He subsequently went for dinner with his and had had no oral intake till that time and said down to have dinner and while he was ingesting his food he developed sudden feeling of dizziness warmth and diaphoresis and then he passed out at the table. 911 was called and he was noted to have significant hypotension with blood pressure in the systolic 80 range. He was brought to the emergency room was hydrated and subsequently admitted for observation. Since yesterday his blood pressure is normalized. He is feeling much better. He had no episodes of chest pain or shortness of breath or palpitations prior to passing out. EKG done in the emergency room did not show any acute ischemic events. Troponins were negative. Creatinine is stable at 1.4. No significant issues with bleeding. He had renal duplex recently which showed no evidence of significant renal artery stenosis. 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 Overnight telemetry has shown no significant arrhythmias Review of Systems Constitutional: Constitutional: Reports no additional constitutional complaints Eyes: Eyes: Reports no additional eye complaints Cardiovascular: Cardiovascular: Reports chest pain with activity, Denies leg edema, Reports lightheadedness, Reports Loss of Consciousness, Denies palpitations, Denies dyspnea and Denies dyspnea on exertion Respiratory: Respiratory: Denies dyspnea and Denies dyspnea on exertion Gastrointestinal: Gastrointestinal: Reports no additional gastrointestinal complaints Genitourinary: Genitourinary: Reports no additional male genitourinary complaints Musculoskeletal: Musculoskeletal: Reports no additional musculoskeletal complaints Psychiatric: Psychiatric: Reports no additional psychiatric complaints Endocrine: Endocrine: Denies palpitations PMF Past Medical History Medical History Hypertension Social History Social History Household Members: Spouse Housing: House Do you presently have visiting nurse or other home services: No Patient Tobacco Use Status: Former Tobacco user Tobacco use type: Cigarette Smoked in Last 30 Days: No Use of substances other than those prescribed or required for medical reasons: No Currently Displaying Signs/Symptoms of Drug Intoxication Withdrawal: No Have you been hit, kicked, punched, or otherwise hurt by someone within the past year? If so, by whom?: No Do you feel safe in your current relationship?: Yes Is there a partner from a previous relationship who is making you feel unsafe now?: No Are you made to feel afraid or neglected: No Advance Directives: No Advance Directives Information Provided: No Recently lost weight without trying: No Eating poorly because of decreased appetite: No Nutrition Risks: No Nutritional Risk Poor oral hygiene: No service: No Meds Allergies Allergy/AdvReac Type Severity Reaction Status Date / Time No Known Allergies Allergy Verified 11/08/23 19:48 Active Medications: Current Medications Acetaminophen (Acetaminophen 325 Mg Tablet) 650 mg PO Q6H PRN PRN Reason: Pain, Mild (Pain Scale 1-3), fever or headache Melatonin (Melatonin 3 Mg Tablet) 6 mg PO BEDTIME PRN PRN Reason: Insomnia Sodium Chloride (0.9 % Sodium Chloride Flush 3 Ml Syringe) 3 ml [facility] Last Admin: 11/09/23 08:13 Dose: 3 ml Home Medications ?Medication ?Instructions ?Recorded ?Confirmed ?Last Taken ?Type hydralazine 50 mg tablet 50 mg PO BID 06/30/22 11/09/23 Unknown History losartan 100 mg tablet 150 mg PO DAILY 06/30/22 11/09/23 Unknown History metoprolol succinate 100 mg 100 mg PO DAILY 06/30/22 11/09/23 Unknown History tablet,extended release 24 hr omeprazole 20 mg capsule,delayed 20 mg PO DAILY@0630 06/30/22 11/09/23 Unknown History release spironolactone 25 mg tablet 25 mg PO DAILY 06/30/22 11/09/23 Unknown History amlodipine 5 mg tablet 5 mg PO DAILY 11/09/23 11/09/23 Unknown History aspirin 81 mg chewable tablet 81 mg PO DAILY 11/09/23 11/09/23 Unknown History atorvastatin 80 mg tablet 80 mg PO BEDTIME 11/09/23 11/09/23 Unknown History calcium carbonate 500 mg PO DAILY 11/09/23 11/09/23 Unknown History isosorbide mononitrate 30 mg 30 mg PO DAILY 11/09/23 11/09/23 Unknown History tablet,extended release 24 hr magnesium oxide 800 mg PO DAILY 11/09/23 11/09/23 Unknown History multivitamin 1 tab PO DAILY 11/09/23 11/09/23 Unknown History nitroglycerin 0.4 mg sublingual 0.4 mg sublingual Q5M PRN Angina 11/09/23 11/09/23 Unknown History tablet tizanidine 4 mg tablet 4 mg PO BEDTIME PRN Muscle Spasm 11/09/23 11/09/23 Unknown History Physical Exam Vital Signs: Vital Signs: Last Vital Signs Temp 97.1 F 11/09/23 07:54 Pulse 70 11/09/23 07:54 Resp 18 11/09/23 07:54 BP 138/78 11/09/23 07:54 Pulse Ox 97 11/09/23 07:54 O2 Del Method Room Air 11/09/23 07:54 BMI result Body Mass Index 27.6 Const: General: cooperative, comfortable, no acute distress, alert, awake and Physically active Nutritional Appearance: average body habitus Orientation/consciousness: patient oriented x3 Limitations: no limitations HEENT: Head: Yes normocephalic and Yes atraumatic Neck: Neck: Yes trachea midline, Yes supple and Yes no JVD Resp: Effort & Inspection: normal respiratory effort Auscultation: clear to auscultation bilaterally Cardio: Jugular venous distension: no JVD Palpation: normal PMI Rate: regular rate Rhythm: regular rhythm Heart sounds: S1 normal heart sound present, S2 normal heart sound present, no click, no gallops, no murmurs and no rubs GI: Auscultation: normal bowel sounds Skin: General skin exam: no rashes or lesions noted Neuro: General: patient oriented x3 and no focal motor deficits Extrem: General: Yes no clubbing, cyanosis or edema Objective Labs and Meds 11/09/23 06:28 11/09/23 06:28 Lab results: Laboratory Results - last 24 hr 11/08/23 11/09/23 20:23 06:28 WBC 11.1 H 10.3 RBC 3.82 L 4.03 L Hgb 12.2 L 12.5 L Hct 33.6 L 36.3 L MCV 88.0 90.1 MCH 31.9 31.0 MCHC 36.3 H 34.4 RDW 12.4 12.3 Plt Count 128 L 119 L MPV 8.9 L 9.4 Immature Gran % (Auto) 0.2 0.5 H Neut % (Auto) 76.6 H 73.5 H Lymph % (Auto) 14.3 L 16.0 L [place] % (Auto) 7.9 8.4 Eos % (Auto) 0.7 1.2 Baso % (Auto) 0.3 0.4 Lymph # (Auto) 1.6 1.6 [place] # (Auto) 0.9 0.9 Eos # (Auto) 0.1 0.1 Baso # (Auto) 0.0 0.0 Abs Immat Gran (auto) 0.02 0.05 H Absolute Neuts (auto) 8.5 H 7.6 Absolute Nucleated RBC 0.000 0.000 Nucleated RBC % (auto) 0.0 0.0 Sodium 139 141 Potassium 4.6 4.4 Chloride 107 104 Carbon Dioxide 23 29 Anion Gap 14 12 BUN 27 H 25 H Creatinine 1.40 1.35 Estim Creat Clear Calc 46.2 47.9 Estimated GFR 49 51 Random Glucose 125 H 110 Calcium 9.2 9.3 Total Bilirubin 1.3 H AST 19 ALT 15 Alkaline Phosphatase 95 Troponin I High Sens < 2.7 < 2.7 Total Protein 6.1 L Albumin 3.8 EKG shows normal sinus rhythm with normal EKG with no acute ischemic changes Imaging Radiologist's impression: Impressions Head/Neck CTA 11/08/23 22:15 IMPRESSION: 1. No acute intracranial abnormality including hemorrhage, mass effect, hydrocephalus, or acute territorial edematous infarction. 2. Arachnoid cyst along the anterior aspect of the right middle cranial fossa with mild mass effect on the anterior right temporal lobe. 3. 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 No other high-grade arterial narrowing or occlusion in the neck. 4. No intracranial arterial high-grade stenosis or large vessel occlusion. 5. Bilateral calcified pleural plaques which can be seen in the setting of prior asbestos exposure. Assessment and Plan (1) Syncope: Qualifiers: Syncope type: unspecified Qualified Code(s): R55 - Syncope and collapse Status: Acute Syncope in this elderly gentleman most likely appears to be orthostatic in nature with poor oral intake throughout the day and taking his medications off time eventually leading to syncopal episodes. His blood pressure is now stabilized. He most likely has significant labile blood pressure issues given his diffuse vascular disease. At this point time I would ask him to stagger his medications to reduce risk of recurrent orthostatic hypotension. Also advise him to take his medications on a timely basis. Advised to maintain adequate oral hydration at least up to 60 oz. We discussed about orthostatic precautions and advised to resume sitting or supine position when he gets symptomatic to avoid injuries. Will switch his losartan to 50 mg b.i.d. on discharge. Continue take his metoprolol and spironolactone in the morning and switch his amlodipine 5 mg to nighttime. Continue hydralazine at his usual dose. 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 (2) CAD (coronary artery disease): Status: Acute Evidence of CAD with hemodynamically significant disease in distal RCA as well as hemodynamically significant reduction FFR and distal LAD with diffuse LAD disease most responsible for his symptoms of angina. However he has no evidence of acute coronary syndrome at this point in time. I would suggest to be on low-dose aspirin therapy. Continue amlodipine and metoprolol dual antianginal therapy. Also consider high-intensity statin therapy given diffuse nature of atherosclerosis. Will follow up with his own electric locomotive firer/fireman on discharge. Thank you for allowing me to partake in his care Procedures Date of Service Date of Service: 11/09/23
[2023-11-09 11:16] VITALS: BP 116/62; PULSE 63; RESP 18; TEMP 36.2; O2SAT 97
--- NOTE | 2023-11-09 13:12 | P.DS_ITS ---
DS: Providers Provider Date of Service: 11/09/23 Date of admission: 11/09/23 02:06 Date of discharge: 11/09/23 Primary care physician: Jesse Infante MD Consults: 11/09/23 03:06 Consult to Cardiology Routine Consulting Provider: [facility] [place] Reason for consultation: Syncope Has provider been notified: Yes DS: Diagnosis Discharge Diagnosis (1) Syncope: Status: Acute DS: Summary Hospital Course Hospital Course: 77 years old man with past medical history significant for essential hypertension on metoprolol, losartan and amlodipine was brought to the emergency department via EMS after he had an event of loss of consciousness while eating in restaurant last night around 6:30 PM. He was eating pasta and pointed out that it was very hot. Before losing consciousness he felt very dizzy and sweaty. He denied confusion upon regaining consciousness. No seizure activity, focal weakness, speech difficulty, acute visual changes or headache reported. This event was witnessed by his . He said that his blood pressure was found to be 80/50 by EMS. He was drinking alcohol but only couple of sips. He denied any event of nausea, vomiting, diarrhea. Patient denied diuretics use but dispense med hx patient takes spironolactone. He denied any taking any new medication or changes please call with medications. Lately he has been experiencing some chest discomfort and follows with his shipyard supervisor at [facility]. He underwent a stress test for this. Patient did report toxic habits. In the ED, was found to have normal vital signs. Blood workup showed mild leukocytosis of 11.1. Hemoglobin is 12.2 and platelets 128. There are no significant electrolyte imbalances. BUN is 27 and creatinine 1.40. Troponin < 2.7. ECG showed normal sinus rhythm with no acute ischemic changes. Hospital Course Admitted to telemetry overnight without evidence of pathological rhythm. 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 Patient had no further syncopal episodes. Seen in consultation by Cardiology who reviewed [facility] notes and discussed with patient. It was felt that this was a combination of volume depletion in backdrop of aggressive antihypertensive therapy. Medications have been adjusted and patient will follow up with his outpatient shipyard supervisor and his PCP. Further workup and discussion of treatment if indicated of vertebral artery stenosis can be undertaken by shipyard supervisor and PCP. Time Attestation Discharge Coordination Time (in mins): 35 Quality: Safe Use of Opioids Does Pt have an Active Cancer Diagnosis on the Problem List?: No Quality: Stroke Does the patient have a stroke diagnosis?: No Physical Exam Vital Signs: Vital Signs: Last Vital Signs Temp 97.2 F 11/09/23 11:16 Pulse 63 11/09/23 11:16 Resp 18 11/09/23 11:16 BP 116/62 11/09/23 11:16 Pulse Ox 97 11/09/23 11:16 O2 Del Method Room Air 11/09/23 11:16 BMI result Body Mass Index 27.6 Const: Other: Awake alert no acute distress Resp: Other: Clear to auscultation bilaterally no rales rhonchi or wheezes Cardio: Other: No S4; positive S1-S2; no S3 murmurs rubs or gallops GI: Other: Soft nontender nondistended normoactive bowel sounds Neuro: Other: Cranial nerves 2-12 grossly intact as tested. Motor is 5/5 all extremities. Sensation is intact. Gait is stable Extrem: Other: No edema bilaterally DS: Data Data Completed and Pending Labs on day of discharge: Laboratory Results - last 24 hr 11/08/23 11/09/23 20:23 06:28 WBC 11.1 H 10.3 RBC 3.82 L 4.03 L Hgb 12.2 L 12.5 L Hct 33.6 L 36.3 L MCV 88.0 90.1 MCH 31.9 31.0 MCHC 36.3 H 34.4 RDW 12.4 12.3 Plt Count 128 L 119 L MPV 8.9 L 9.4 Immature Gran % (Auto) 0.2 0.5 H Neut % (Auto) 76.6 H 73.5 H Lymph % (Auto) 14.3 L 16.0 L [place] % (Auto) 7.9 8.4 Eos % (Auto) 0.7 1.2 Baso % (Auto) 0.3 0.4 Lymph # (Auto) 1.6 1.6 [place] # (Auto) 0.9 0.9 Eos # (Auto) 0.1 0.1 Baso # (Auto) 0.0 0.0 Abs Immat Gran (auto) 0.02 0.05 H Absolute Neuts (auto) 8.5 H 7.6 Absolute Nucleated RBC 0.000 0.000 Nucleated RBC % (auto) 0.0 0.0 Sodium 139 141 Potassium 4.6 4.4 Chloride 107 104 Carbon Dioxide 23 29 Anion Gap 14 12 BUN 27 H 25 H Creatinine 1.40 1.35 Estim Creat Clear Calc 46.2 47.9 Estimated GFR 49 51 Random Glucose 125 H 110 Calcium 9.2 9.3 Total Bilirubin 1.3 H AST 19 ALT 15 Alkaline Phosphatase 95 Troponin I High Sens < 2.7 < 2.7 Total Protein 6.1 L Albumin 3.8 Discharge Plan Discharge Anticipated Discharge Date/Time: 11/09/23 13:05 Patient Disposition: Home, Self-Care Discharge Diagnosis: Syncopal episode Referrals: Jesse Infante MD [Primary Care Provider] - 1 Week Discharge Medications: New losartan 50 mg tablet 50 mg PO BID Qty: 60 2RF amlodipine 5 mg tablet 5 mg PO .QHS Qty: 30 0RF Continued atorvastatin 80 mg tablet 80 mg PO BEDTIME tizanidine 4 mg tablet 4 mg PO BEDTIME PRN (Reason: Muscle Spasm) isosorbide mononitrate 30 mg tablet extended release 24 hr 30 mg PO DAILY nitroglycerin 0.4 mg tablet, sublingual 0.4 mg sublingual Q5M PRN (Reason: Angina) multivitamin Tablet 1 tab PO DAILY calcium carbonate 500 mg calcium (1,250 mg) Tablet 500 mg PO DAILY aspirin 81 mg Tablet,Chewable 81 mg PO DAILY magnesium oxide 400 mg magnesium Tablet 800 mg PO DAILY metoprolol succinate 100 mg tablet extended release 24 hr 100 mg PO DAILY hydralazine 50 mg tablet 50 mg PO BID spironolactone 25 mg tablet 25 mg PO DAILY omeprazole 20 mg capsule,delayed release(DR/EC) 20 mg PO DAILY@0630 Discontinued amlodipine 5 mg tablet 5 mg PO DAILY losartan 100 mg tablet 150 mg PO DAILY Discharge Orders: Discharge Order (Routine); Ordered 11/09/23 Ordered By: Osmar Kaplan Diet: Advance to usual diet Activity on Discharge: As tolerated Stand Alone Forms: Patient Portal Discharge page Print Language: Macedonian Care Plan Goals: Medication changes this admission; losartan is now 50 mg twice daily. Your amlodipine has been moved to bedtime. Continue all other medications as previously taken Health Concerns: Follow up with the shipyard supervisor and your PCP as scheduled Plan of Treatment: Drink at least 5-6 8 oz glasses of water per day to avoid dehydration Assessment: See discharge summary
--- NOTE | 2023-11-09 13:15 | MHC.CM.PN ---
Pt is medically cleared for discharge home self-care, pts or a friend will transport him home.
--- OUTSIDE RECORDS SUMMARY | 2023-11-10 08:06 | XMS_ITS | Continuity of Care Document ---
Author Organization [facility] [place] Address [address] [place] [address]- Care Team Providers Care Funeral Sales Manager Name Role Phone Jesse Infante MD Primary Care Physician [phone] Encounter [facility] Date(s): 08/01/23 - 08/31/23 [facility] [address] [place] [address]- Allergies, Adverse Reactions, Alerts No Known Allergies Medications amLODIPine 5 mg oral tablet 5 mg, 1, tablet, By Mouth, Daily, # 90 tablet, Refills 3, Tot. Refills 3, Maintenance, 08/01/23 14:03:00 EDT, Route to Pharmacy Electronically, [facility]/pharmacy #[id number], Partial fill upon patient request if the prescription is for a schedule II opioid drug.... Start Date: 08/01/23 Status: Ordered calcium (as carbonate) 500 mg oral tablet, chewable 1 tablet = 500 mg, Chew, Daily, # 12 tablet, 0 Refills, Maintenance, 07/19/23 9:06:00 EST, Chew Tablet, Partial fill upon patient request if the prescription is for a schedule II opioid drug. Start Date: 07/19/23 Status: Ordered Flax Oil = 1,000 mg, Daily, 0 Refills, Maintenance, 07/19/23 9:03:00 EST, Partial fill upon patient request if the prescription is for a schedule II opioid drug. Start Date: 07/19/23 Status: Ordered hydrALAZINE 50 mg oral tablet 1 tablet = 50 mg, By Mouth, Daily, # 30 tablet, 0 Refills, Maintenance, 07/19/23 9:07:00 EST, Tablet, Partial fill upon patient request if the prescription is for a schedule II opioid drug. Start Date: 07/19/23 Status: Ordered losartan 25 mg oral tablet 25 mg, 1, tablet, By Mouth, Daily, Refills 0, Maintenance, 02/21/20 15:13:00 EDT Start Date: 02/21/20 Status: Ordered meloxicam 15 mg oral tablet 1 tablet = 15 mg, By Mouth, Daily, 0 Refills, Maintenance, 07/19/23 9:06:00 EST, Partial fill upon patient request if the prescription is for a schedule II opioid drug. Start Date: 07/19/23 Status: Ordered metoprolol 100 mg oral tablet, extended release 100 mg, 1, tablet, By Mouth, Daily, # 30 tablet, Refills 3, Tot. Refills 3, Maintenance, 07/18/23 11:47:00 EST, Route to Pharmacy Electronically, [facility]/pharmacy #[id number], Partial fill upon patient requestif the prescription is for a schedule II opioid baljinder... Start Date: 07/18/23 Stop Date: 11/15/23 Status: Ordered Miscellaneous Rx Daily, 0 Refills, Maintenance, Magnesium select 300 mg, 07/19/23 9:02:00 EST Start Date: 07/19/23 Status: Ordered Multi Vitamin+ adult daily 50 plus, 0 Refills, Maintenance, 07/19/23 9:01:00 EST, Partial fill upon patient request if the prescription is for a schedule II opioid drug. Start Date: 07/19/23 Status: Ordered [place]-3 Fish Oil = 500 mg, By Mouth, 3 times a day, 0 Refills, Maintenance, 07/19/23 9:04:00 EST, Partial fill upon patient request if the prescription is for a schedule II opioid drug. Start Date: 07/19/23 Status: Ordered Omeprazole By Mouth, Daily, 0 Refills, Maintenance, 02/21/20 14:48:00 EDT Start Date: 02/21/20 Status: Ordered spironolactone 25 mg oral tablet 25 mg, 1, tablet, By Mouth, Daily, # 30 tablet, Refills 0, Maintenance, 07/19/23 9:06:00 EST, Partial fill upon patient request if the prescription is for a schedule II opioid drug. Start Date: 07/19/23 Status: Ordered tiZANidine 4 mg oral tablet See Instructions, 4 mg before bed, Refills 0, Maintenance, 07/19/23 9:08:00 EST, Instructions Replace Required Details, Partial fill upon patient request if the prescription is for a schedule II opioid drug. Start Date: 07/19/23 Status: Ordered Problem List Condition Confirmation Course Effective Dates Status Health St atus Informant Lumbar facet arthropathy Confirmed Active Right low back pain Confirmed Active Myofascial pain Confirmed Active Social History Social History Type Response Smoking Status Former smoker, quit more than 30 days ago entered on: 07/18/23 Sex Patient Care team information Care Team Personnel Name: Jesse Infante MD Position: [facility] Physician - Primary Care Member Role: PCP Address: Address: [address] [place] [address]- Care Team Related Persons Name: FABIANA ARAYA Address: home [address] [place] [address]
--- OUTSIDE RECORDS SUMMARY | 2023-11-10 08:06 | XMS_ITS | Continuity of Care Document ---
Author Organization [facility] Address [address] [place] [id number]- Care Team Providers Care Faith Healer Name Role Phone Jesse Infante MD Primary Care Physician Encounter [facility] Date(s): 07/07/23 - 08/06/23 [facility] [address] [place] [phone]- [place] Allergies, Adverse Reactions, Alerts No Known Allergies Medications amLODIPine 5 mg oral tablet 5 mg, 1, tablet, By Mouth, Daily, # 90 tablet, Refills 3, Tot. Refills 3, Maintenance, 08/01/23 14:03:00 EDT, Route to Pharmacy Electronically, [facility]/pharmacy #[id number], Partial fill upon patient request if the [...] 07/18/23 11:47:00 EST, Route to Pharmacy Electronically, [facility]/pharmacy #[id number], Partial fill upon patient requestif the prescription [...] opioid drug. Start Date: 07/19/23 Status: Ordered [place]-3 Fish Oil = 500 mg, By Mouth, [...] Team Personnel Name: Jesse Infante MD Position: S Physician - Primary Care Member Role: PCP Address: Address: [address] [place] [address] Care Team Related Persons Name: FABIANA ARAYA Address: home [address] [place] [address]
--- OUTSIDE RECORDS SUMMARY | 2023-11-10 08:06 | XMS_ITS | Continuity of Care Document ---
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 Refills 3, Maintenance, 08/01/23 14:03:00 EDT, Route to Pharmacy Electronically, [facility]/pharmacy #[id number], Partial fill upon patient request if the [...] 07/18/23 11:47:00 EST, Route to Pharmacy Electronically, [facility]/pharmacy #[id number], Partial fill upon patient requestif the prescription [...] opioid drug. Start Date: 07/19/23 Status: Ordered [place]-3 Fish Oil = 500 mg, By Mouth, [...] Team Personnel Name: Jesse Infante MD Position: [facility] Physician - Primary Care Member Role: PCP Address: Address: [address] [place] [address]- Care Team Related Persons Name: FABIANA ARAYA Address: [facility] [address] [place] [address]
--- OUTSIDE RECORDS SUMMARY | 2023-11-10 08:06 | XMS_ITS | Patient Health Record ---
Author Organization [facility] Address [address] [facility] [place] [address] Care Team Providers Care Nursing Instructor Name Role Phone Jesse Infante MD Primary Care Provider UnavailLamont Segovia Unavailable [phone] ALLERGIES No Known Allergies REASON FOR REFERRAL No Information MEDICATIONS Medication SIG (Take, Route, Frequency, Duration) Notes Start Date End Date Status Spironolactone 25 MG 1 tablet Orally for 30 day(s) Active Omeprazole 20 MG 1 capsule 30 minutes before morning meal Orally Once a day for 30 day(s) Active Metoprolol Succinate 200 MG 1 capsule Or ally Once a day for 30 day(s) Active Losartan Potassium A ctive hydrALAZINE HCl 50 MG 1 tablet with food Orally Three times a day for 30 day(s) Active SOCIAL HISTORY Tobacco Use: Social History Observation Description Date Details (start date - stop date) Former Smoker NA - NA Sex Assigned At : Social History Observation Description Sex Assigned At Unknown Tobacco Use/Smoking Question Answer Notes Are you a: former smoker Additional Findings: Tobacco Non-User Current no n-smoker Alcohol Screen Question Answer Notes Did you have a drink contain ing alcohol in the past year? Yes How often did you have a dri nk containing alcohol in the past year? 2 to 3 times a week (3 points) Points 3 Interpretation Negative Tobacco use other than smoking: Question Answer Notes Are you an other tobacco user? No PROBLEMS Problem Type ICD Code Onset Dates Problem Status W/U Status Risk SNOMED Code Notes Problem Other hammer toe(s) (acquired), left foot (M20.42) Active confirmed Acquired hammer toe of left foot ([id number] [id number]) PLAN OF TREATMENT Pending Test Test Name Order Date X ray : Foot, left 3V 02/10/2022 X ray : Foot, right 3V 02/10/2022 Insurance Providers Payer Name Payer Address Payer Phone Subscriber Number Group Number Insured Name Patient Relationship to Insured Coverage Start Date Coverage End Date Medicare National [employer] [address] [place] [address] [id number] Michael Urena Self - patient is the insured [employer] [address] [place] [address] [phone] [id number] Michael Urena Self - patient is the insured MEDICAL (GENERAL) HISTORY Medical History History ICD Code Back,Hip,and Knee pain covid-19 Gall bladder problems High blood pressure Lung disease Sciatica Measles Mumps Chicken pox Surgical History Surgery Date(Month/Year) gall bladder left knee arthroscopy right knee arthroscopy
--- OUTSIDE RECORDS SUMMARY | 2023-11-10 08:06 | XMS_ITS | Continuity of Care Document ---
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 Date(s): 04/17/20 - 04/24/20 [facility] [address] [place] [address], [address] [place], [place] [address] Attending Physician: Shanti Flores MD Referring Physician: Jesse Infante MD Allergies, Adverse Reactions, Alerts Substance Reaction Severity Status NKA Active Medications amLODIPine 5 mg oral tablet 5 mg, 1, tablet, By Mouth, Daily, # 30 tablet, Refills 0, Maintenance, 02/21/20 14:48:00 EDT Start Date: 02/21/20 Status: Ordered losartan 25 mg oral tablet 25 mg, 1, tablet, By Mouth, Daily, Refills 0, Maintenance, 02/21/20 15:13:00 EDT Start Date: 02/21/20 Status: Ordered metoprolol 25 mg oral tablet 25 mg, 1, tablet, By Mouth, 2 times a day, Refills 0, Maintenance, 02/21/20 15:12:00 EDT Start Date: 02/21/20 Status: Ordered Omeprazole By Mouth, Daily, 0 Refills, Maintenance, 02/21/20 14:48:00 EDT Start Date: 02/21/20 Status: Ordered Problem List Condition Effective Dates Status Health Status Inform ant Lumbar facet arthropathy(Confirmed) Active Right low back pain(Confirmed) Active Myofascial pain(Confirmed) Active Vital Signs Most recent to oldest [Reference Range]: 1 Height 175 cm (04/17/20 2:32 PM) Weight 88.5 kg (04/17/20 2:32 PM) Body Mass Index [18.5-24.99] 28.9 *H* (04/17/20 2:32 PM)
--- OUTSIDE RECORDS SUMMARY | 2023-11-10 08:06 | XMS_ITS | Continuity of Care Document ---
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 Refills 3, Maintenance, 08/01/23 14:03:00 EDT, Route to Pharmacy Electronically, [facility]/pharmacy #[id number], Partial fill upon patient request if the [...] 07/18/23 11:47:00 EST, Route to Pharmacy Electronically, [facility]/pharmacy #[id number], Partial fill upon patient requestif the prescription [...] opioid drug. Start Date: 07/19/23 Status: Ordered [place]-3 Fish Oil = 500 mg, By Mouth, [...] Team Personnel Name: Jesse Infante MD Position: [facility] Physician - Primary Care Member Role: PCP Address: Address: [address] [place] [address]- Care Team Related Persons Name: FABIANA ARAYA Address: [address] [address]
== END 2023-11-09 13:25 | disposition home or self-care (01) ==
LOC: HO.ED 23:59 → HO.EDOVER 11-09 02:10 → HO.IMC 11-09 02:32
PROVIDERS: Admitting Provider Internal Medicine; Emergency Provider Internal Medicine; PCP Internal Medicine; Visit Provider Hospitalist
DX: R55 Syncope and collapse (principal); I65.01 Occlusion and stenosis of right vertebral artery; I25.10 Atherosclerotic heart disease of native coronary artery without angina pectoris; I12.9 Hypertensive chronic kidney disease with stage 1 through stage 4 chronic kidney disease, or unspecified chronic kidney disease; N18.31 Chronic kidney disease, stage 3a; E78.5 Hyperlipidemia, unspecified; Z79.899 Other long term (current) drug therapy
CPT/HCPCS: 36415; 70496; 70498; 71045; 80048; 80053; 84484; 85025; 93005; 93306; 96360; 99222; 99285; Q9957; Q9967

== ENCOUNTER → 2023-11-08 19:41 | Outpatient (BNV) | payer MEDICARE, SELFPAY | PROVIDERS: Admitting Provider Internal Medicine; Emergency Provider Internal Medicine; PCP Internal Medicine; Visit Provider Internal Medicine Cardiovascular Disease | DX: R55 Syncope and collapse (principal) | CPT/HCPCS: 93010 ==

== ENCOUNTER → 2023-11-09 02:06 | Outpatient (BNV) | payer MEDICARE, SELFPAY | PROVIDERS: Admitting Provider Internal Medicine; Emergency Provider Internal Medicine; PCP Internal Medicine; Visit Provider Psychiatry & Neurology Neurology | DX: R55 Syncope and collapse (principal) | CPT/HCPCS: 99221 ==

== ENCOUNTER → 2023-11-09 02:06 | Outpatient (BNV) | payer MEDICARE, SELFPAY | PROVIDERS: Admitting Provider Internal Medicine; Emergency Provider Internal Medicine; PCP Internal Medicine; Visit Provider Internal Medicine | DX: R55 Syncope and collapse (principal); I65.01 Occlusion and stenosis of right vertebral artery | CPT/HCPCS: 99239; 99499 ==

== ENCOUNTER → 2023-11-09 02:06 | Outpatient (BNV) | payer MEDICARE, SELFPAY | PROVIDERS: Admitting Provider Internal Medicine; Emergency Provider Internal Medicine; PCP Internal Medicine; Visit Provider Internal Medicine Cardiovascular Disease | DX: I25.10 Atherosclerotic heart disease of native coronary artery without angina pectoris (principal); R55 Syncope and collapse; I35.8 Other nonrheumatic aortic valve disorders; R93.1 Abnormal findings on diagnostic imaging of heart and coronary circulation | CPT/HCPCS: 93306; 99222 ==